=== PATIENT | male | born 1975 | race Caucasian/White ===

== ENCOUNTER → 2016-06-12 | Outpatient (CLI) | payer MEDICARE, OTHER ==
[2016-02-02 12:06] VITALS: BP 109/65
[~2016-06-12] MED LIST: CLIN-44 PO
[2016-06-12 10:25] LABS: ALBUMIN 4.3 g/dL (3.4-5.0); DIRECT BILIRUBIN 0.1 mg/dL (0.0-0.2); TOTAL BILIRUBIN 0.4 mg/dL (0.2-1.0); TOTAL PROTEIN 7.3 g/dL (6.4-8.2)
== END | disposition home or self-care (01) ==
LOC: LAB 09:58
PROVIDERS: ATTEND Internal Medicine Rheumatology
DX: B35.1 Tinea unguium (principal)
CPT/HCPCS: 36415; 80076

== ENCOUNTER 2016-06-21 20:44 | Emergency (ER) | payer MEDICARE, OTHER ==
[~2016-06-21] VITALS: Ht 172.7 cm; Wt 65.8 kg
[2016-06-21 20:50] VITALS: BP 143/65
--- NOTE | 2016-06-21 22:00 | PHYS DOC ---
Past Medical History Past Medical History: Migraines, Seizure Past Surgical History: Other Additional Past Surgical Histo: Hernia repair Alcohol Use: None Drug Use: None Adult General Chief Complaint Chief Complaint: UPPER EXTREMITY INJURY HPI HPI Patient is a 40 year old male who presents with right upper extremity pain after falling on it bowling. Patient denies any loss of consciousness. Review of Systems Review of Systems Constitutional: Denies fever or chills [] Eyes: Denies change in visual acuity, redness, or eye pain [] Musculoskeletal: Right upper extremity pain Integument: Denies rash or skin lesions [] Neurologic: Denies headache, focal weakness or sensory changes [] Endocrine: Denies polyuria or polydipsia [] Allergies Allergies Allergies Coded Allergies Type Severity Reaction Last Updated Verified acetaminophen Allergy Intermediate 08/08/14 Yes Physical Exam Physical Exam Constitutional: Well developed, well nourished, no acute distress, non-toxic appearance. [] HENT: Normocephalic, atraumatic, bilateral external ears normal, oropharynx moist, no oral exudates, nose normal. [] Skin: Warm, dry, no erythema, no rash. [] Back: No tenderness, no CVA tenderness. [] Extremities: Right upper extremity with no obvious deformity. Diffuse tenderness to the right upper extremity from [employer] redness to meet forearm. Adequate range of motion to the right upper extremity. Adequate plantar flexion and dorsiflexion to the right upper extremity. Adequate medial radial and ulnar sensation to the right upper extremity. +2 right radial pulse. Cap refill less than 2 seconds the right upper extremity. Sensation intact to the right upper extremity. Neurologic: Alert and oriented X 3, normal motor function, normal sensory function, no focal deficits noted. [] Psychologic: Affect normal, judgement normal, mood normal. [] Current Patient Data Vital Signs Vital Signs Date Time Temp Pulse Resp B/P Pulse Ox O2 Delivery O2 Flow Rate FiO2 06/21/16 20:50 97.4 69 18 98 Room Air 97.4 EKG EKG [] Radiology/Procedures Radiology/Procedures [] Course & Med Decision Making Course & Med Decision Making Pertinent Labs and Imaging studies reviewed. (See chart for details) Patient is in the ED right upper extremity pain after falling on it, right shoulder and forearm x-rays interpreted by Dr. Delatorre and negative for any acute findings. Patient was provided a sling in the ED applied by the ED RN, neurovascular exam done by me is normal, cap refill less than 2 seconds. Ice elevation encouraged. Follow-up with Ortho next week. Naproxen for pain. Dragon Disclaimer Dragon Disclaimer This electronic medical record was generated, in whole or in part, using a voice recognition dictation system. Departure Departure Impression: Primary Impression: Sprain of right upper arm Additional Impression: Fall from standing Disposition: HOME, SELF-CARE Condition: STABLE Referrals: ISRRAEL DIEGO MD (PCP) JENNA LEGGETT MD Follow-up with the provided orthopedic doctor or your own doctor in a week if pain continues Patient Instructions: Joint Sprain Additional Instructions: You were seen for right upper extremity sprain after falling. Ice and elevate the extremity. Follow-up with the provided orthopedic doctor in one week if pain continues. Problem Qualifiers Primary Impression: Sprain of right upper arm Encounter type: initial encounter Qualified Code: S43.401A - Unspecified sprain of right shoulder joint, initial encounter Additional Impression: Fall from standing Encounter type: initial encounter Qualified Code: W19.XXXA - Unspecified fall, initial encounter LORETTA ANTONIO APRN Jun 21, 2016 22:00
--- NOTE | 2016-06-22 08:10 | RAD ---
Right shoulder, 3 views, 06/21/2016: History: Fall, pain No fracture or dislocation is identified. The soft tissues are unremarkable. IMPRESSION: No significant right shoulder abnormality is detected. Right forearm, 2 views, 06/21/2016: No fracture is identified. The soft tissues are unremarkable. IMPRESSION: No acute abnormality is detected.
== END 2016-06-21 22:11 | disposition home or self-care (01) ==
LOC: ER 20:44
DX: S43.401A Unspecified sprain of right shoulder joint, initial encounter (principal); G43.909 Migraine, unspecified, not intractable, without status migrainosus; Z88.8 Allergy status to other drugs, medicaments and biological substances; W19.XXXA Unspecified fall, initial encounter; Y93.54 Activity, bowling; Y92.89 Other specified places as the place of occurrence of the external cause; Y99.8 Other external cause status
CPT/HCPCS: 73030; 73090; 99284

== ENCOUNTER 2016-07-17 02:46 | Emergency (ER) | payer OTHER ==
[~2016-07-17] VITALS: Ht 172.7 cm; Wt 65.8 kg
[2016-07-17 02:55] VITALS: BP 152/66
--- NOTE | 2016-07-17 03:09 | PHYS DOC ---
Past Medical History Past Medical History: Migraines, Seizure Past Surgical History: Other Additional Past Surgical Histo: Hernia repair Alcohol Use: None Drug Use: None Adult General Chief Complaint Chief Complaint: ANKLE PROBLEM HPI HPI Patient is a 40 year old male who presents with R foot/ankle pain. Patient reports tonight ~2345 he started having pain in his R foot and ankle. No fall or other trauma. He is unsure how he could have hurt his foot. He has taken naproxen with insufficient relief at home. No other acute complaints. Review of Systems Review of Systems Constitutional: Denies fever or chills Respiratory: Denies cough or shortness of breath Cardiovascular: Denies chest pain GI: Denies abdominal pain, nausea, vomiting, or diarrhea Musculoskeletal: R foot/ankle pain Neurologic: Denies headache, focal weakness or sensory changes Current Medications Current Medications Current Medications Medications (Trade) Dose Ordered Sig/Margarito Start Time Stop Time Status Last Admin Dose Admin Tramadol HCl (Ultram) 50 mg 1X ONCE 07/17/16 03:30 07/17/16 03:31 DC 07/17/16 03:22 50 MG Allergies Allergies Allergies Coded Allergies Type Severity Reaction Last Updated Verified acetaminophen Allergy Intermediate 08/08/14 Yes Physical Exam Physical Exam Constitutional: Well developed, well nourished, no acute distress, non-toxic appearance HENT: Normocephalic, atraumatic Eyes: EOMI, conjunctiva normal, no discharge Neck: No stridor Pulmonary: No respiratory distress Skin: Warm, dry Neurologic: Alert and oriented X 3 Musculoskeletal: R foot visually unremarkable, no deformity, bruising, or other lesion noted; 2+ DP pulse; no TTP over medial or lateral malleoli; generally TTP over dorsal aspect of foot; motor function limited by pain; sensation to light touch intact; brisk cap refill Current Patient Data Vital Signs Vital Signs Date Time Temp Pulse Resp B/P Pulse Ox O2 Delivery O2 Flow Rate FiO2 07/17/16 03:22 18 96 Room Air 07/17/16 02:55 97.9 84 152/66 97.9 EKG EKG [] Radiology/Procedures Radiology/Procedures X-ray R foot (my read): No acute abnormality Course & Med Decision Making Course & Med Decision Making Pertinent Labs and Imaging studies reviewed. (See chart for details) Patient is 40 year old male who presents with R foot pain. No significant injury noted on exam, will obtain x-ray to further evaluate. Dose of tramadol ordered for pain control. X-rays without acute abnormality per my read. Discussed results with patient. Will apply valerio wrap for support. Discussed RICE treatment with patient. Will discharge with rx for naproxen, instructions for follow up, return precautions. Dragon Disclaimer Dragon Disclaimer This electronic medical record was generated, in whole or in part, using a voice recognition dictation system. Departure Departure Impression: Primary Impression: Pain in right foot Disposition: HOME, SELF-CARE Condition: STABLE Referrals: ISRRAEL DIEGO MD (PCP) Patient Instructions: Foot Sprain Additional Instructions: Thank you for allowing us to provide care today in the Emergency Department. Take the provided medication as directed. Schedule a follow up appointment with your primary care doctor. Return promptly to the Emergency Department if you develop any new or concerning symptoms. Scripts Naproxen 375 Mg [id number] Mg PO BID PRN PAIN #20 Prov:JSOE ORTIZ MD 07/17/16 JOSE ORTIZ MD Jul 17, 2016 03:09
[2016-07-17] MEDS ORDERED: NAPR375T3 PO (03:27)
[2016-07-17] MEDS ORDERED: TRAMADOL 50 MG TABLET. PO ONE (03:30)
--- NOTE | 2016-07-17 07:27 | RAD ---
Indication pain. AP oblique and lateral views of the right foot were obtained. No bony abnormality is seen
== END 2016-07-17 03:30 | disposition home or self-care (01) ==
LOC: ER 02:46
DX: M25.571 Pain in right ankle and joints of right foot (principal); G43.909 Migraine, unspecified, not intractable, without status migrainosus; Z88.6 Allergy status to analgesic agent
CPT/HCPCS: 73630; 99284

== ENCOUNTER 2016-08-13 10:17 | Emergency (ER) | payer OTHER ==
[~2016-08-13] VITALS: Ht 175.3 cm; Wt 65.8 kg
[~2016-08-13 10:17] MED LIST changes: +NAPR375T3 PO
[2016-08-13 10:29] VITALS: BP 113/68
--- NOTE | 2016-08-13 11:11 | PHYS DOC ---
Past Medical History Past Medical History: Migraines, Seizure Past Surgical History: Other Additional Past Surgical Histo: Hernia repair Alcohol Use: None Drug Use: None Adult General Chief Complaint Chief Complaint: WRIST PAIN [facility] HPI Patient is a 40 year old female presents emergency department stating that he was roller skating on Thursday when he fell and injured his left wrist. He states that he is having pain on the ulnar side. Patient states that he is left-hand- dominant. He denies any numbness or tingling into the fingers. He has full range of motion of the wrist. He also states that he's been having right wrist pain as well. He states that this was not related to the fall. He has having increased pain with full range of motion. Patient continues to state that he had taken his child to the doctor yesterday and they looked at his wrist and told him that if he had further pain and discomfort he should follow-up in the emergency department. Review of Systems Review of Systems Constitutional: Denies fever or chills [] Eyes: Denies change in visual acuity, redness, or eye pain [] HENT: Denies nasal congestion or sore throat [] Respiratory: Denies cough or shortness of breath [] Cardiovascular: No additional information not addressed in HPI [] GI: Denies abdominal pain, nausea, vomiting, bloody stools or diarrhea [] : Denies dysuria or hematuria [] Musculoskeletal: Denies back pain. Bilateral wrist pain Integument: Denies rash or skin lesions [] Neurologic: Denies headache, focal weakness or sensory changes [] Allergies Allergies Allergies Coded Allergies Type Severity Reaction Last Updated Verified acetaminophen Allergy Intermediate 08/08/14 Yes Physical Exam Physical Exam Constitutional: Well developed, well nourished, no acute distress, non-toxic appearance. [] HENT: Normocephalic, atraumatic, bilateral external ears normal, oropharynx moist, no oral exudates, nose normal. [] Eyes: PERRLA, EOMI, conjunctiva normal, no discharge. [] Neck: Normal range of motion, no tenderness, supple, no stridor. [] Cardiovascular:Heart rate regular rhythm, no murmur [] Lungs & Thorax: Bilateral breath sounds clear to auscultation [] Skin: Warm, dry, no erythema, no rash. [] Back: No tenderness Extremities: Bilateral wrist tenderness, no cyanosis, no clubbing, ROM intact, no edema. No swelling no discoloration or bruising noted in the wrist. Patient has full range of motion of bilateral wrist, pulse 2+ cap refill brisk less than 2 seconds. Neurologic: Alert and oriented X 3, normal motor function, normal sensory function, no focal deficits noted. [] Psychologic: Affect normal, judgement normal, mood normal. [] Current Patient Data Vital Signs Vital Signs Date Time Temp Pulse Resp B/P Pulse Ox O2 Delivery O2 Flow Rate FiO2 08/13/16 10:29 97.9 84 20 97 Room Air 97.9 EKG EKG [] Radiology/Procedures Radiology/Procedures [facility] [address] [place] [address] IMAGING REPORT Signed PATIENT: KRISTOFER DAWSON ACCOUNT: [id number] : 1975 LOCATION: ER AGE: 40 SEX: M EXAM STATUS: REG ER ORD. PHYSICIAN: DYAN SPRAGUE APRN REASON: fall with pain to left wrist, right wrist pain was hurting prior to fall. PROCEDURE: WRIST BILAT 3V Indication fall, pain both wrists. AP oblique and lateral views of both wrists were obtained. Views of the left wrist appear normal. Views of the right wrist also appear unremarkable. IMPRESSION: Normal plain films of both wrists DICTATED and SIGNED BY: LEONEL LYLES MD DATE: 08/13/16 1126 CC: DYAN SPRAGUE APRN; ISRRAEL DIEGO MD; NON,STAFF ~ [] Course & Med Decision Making Course & Med Decision Making Pertinent Labs and Imaging studies reviewed. (See chart for details) X-rays were negative for any bony abnormalities per radiology. Patient will be recommended to use ice packs on 20 minutes off 20 minutes several times a day. Patient was also encouraged to use ibuprofen for pain. Recommended Lusi wrap's to help with compression and elevation as much as possible. Patient will be referred to orthopedic if he continues to have pain and discomfort. Signs symptoms to return back to emergency department been provided. Patient agrees with discharge instructions treatment regimens and follow-up recommendations. [] Dragon Disclaimer Dragon Disclaimer This electronic medical record was generated, in whole or in part, using a voice recognition dictation system. Departure Departure Impression: Primary Impression: Strain of wrist, bilateral Disposition: HOME, SELF-CARE Condition: STABLE Referrals: ISRRAEL DIEGO MD (PCP) SUJATA GROSS II, MD Patient Instructions: Wrist Pain, [id number] Additional Instructions: Activity as tolerated. Ibuprofen for pain and discomfort. He may take 600-800 mg every 8 hours with food. Stop taking few develop upset stomach. You may apply Luis wrap's to bilateral wrists to help with discomfort. Elevation as much as possible. Ice packs on 20 minutes off 20 minutes several times a day. Follow-up with orthopedic if he continued to have pain and discomfort. Return back to the emergency department for signs and symptoms of become worse. DYAN SPRAGUE APRN Aug 13, 2016 11:11
--- NOTE | 2016-08-13 11:32 | RAD ---
Indication fall, pain both wrists. AP oblique and lateral views of both wrists were obtained. Views of the left wrist appear normal. Views of the right wrist also appear unremarkable. IMPRESSION: Normal plain films of both wrists
== END 2016-08-13 12:16 | disposition home or self-care (01) ==
LOC: ER 10:17
DX: S66.912A Strain of unspecified muscle, fascia and tendon at wrist and hand level, left hand, initial encounter (principal); S66.911A Strain of unspecified muscle, fascia and tendon at wrist and hand level, right hand, initial encounter; G43.909 Migraine, unspecified, not intractable, without status migrainosus; Z88.6 Allergy status to analgesic agent; V00.121A Fall from non-in-line roller-skates, initial encounter; Y93.51 Activity, roller skating (inline) and skateboarding; Y92.89 Other specified places as the place of occurrence of the external cause; Y99.8 Other external cause status
CPT/HCPCS: 73110; 99284

== ENCOUNTER 2016-10-29 11:07 | Emergency (ER) | payer OTHER ==
[~2016-10-29] VITALS: Ht 172.7 cm; Wt 65.8 kg
[~2016-10-29 11:07] MED LIST changes: -CLIN-44 PO; +CLIN150C14 PO
[2016-10-29] MEDS ORDERED: KETOROLAC TROMETHAMINE 30 MG/ML INJ. IV ONE (12:15)
--- NOTE | 2016-10-29 13:07 | RAD ---
CT of the abdomen and pelvis without contrast, 10/29/2016: History: Right groin pain Noncontrast CT scans were obtained utilizing the renal stone protocol. No intrarenal calculi are evident on the right. The right renal pelvis and right ureter are mildly dilated. There is mild periureteral edema. A 6 mm calculus is present in the distal right ureter near the ureterovesical junction. There are 2 small intrarenal calculi on the left. The largest of which lies in the lower pole and measures 3 mm. The left renal collecting system and left ureter are not dilated. No left ureteral calculus is seen. The partially filled urinary bladder is unremarkable. The unopacified liver is unremarkable. There is a tiny focus of increased density along the posterior wall the gallbladder raising the possibility of a tiny calculus. No pericholecystic edema is evident. The pancreas is unremarkable. The spleen is of normal size. No abdominal or pelvic adenopathy is seen. The bowel loops are not dilated. No free fluid or free air is evident in the abdomen or pelvis. Incidental note is made of bilateral spondylolysis at L5. IMPRESSION: 1. Small obstructing calculus in the distal right ureter near the ureterovesical junction. 2. Tiny nonobstructing left intrarenal calculi. 3. Possible cholelithiasis. 4. Bilateral spondylolysis at L5. PQRS Compliance Statement: One or more of the following individualized dose reduction techniques were utilized for this examination: 1. Automated exposure control 2. Adjustment of the mA and/or kV according to patient size 3. Use of iterative reconstruction technique
[2016-10-29 13:16] LABS: BASO # 0.1 x10^3/uL (0.0-0.2); BASO % 1 % (0-3); EOS % 0 % (0-3); HEMATOCRIT 42.6 % (39.0-53.0); HEMOGLOBIN 14.2 g/dL (13.0-17.5); LYMPH # 0.9 x10^3/uL (1.0-4.8); LYMPH % 6 % (24-48); MEAN CORPUSCULAR HEMOGLOBIN 30 pg (25-35); MEAN CORPUSCULAR HGB CONC 33 g/dL (31-37); MEAN CORPUSCULAR VOLUME 91 fL (79-100); MONO % 5 % (0-9); NEUT % 88 % (31-73); PLATELET COUNT 216 x10^3/uL (140-400); RED CELL DISTRIBUTION WIDTH 13.6 % (11.5-14.5)
[2016-10-29 13:22] LABS: CALCIUM 9.1 mg/dL (8.5-10.1); CREATININE 1.4 mg/dL (0.7-1.3); GFR 56.1; POTASSIUM 3.4 mmol/L (3.5-5.1)
[2016-10-29 13:36] LABS: ALBUMIN 4.3 g/dL (3.4-5.0); ALBUMIN/GLOBULIN RATIO 1.4 (1.0-1.7); TOTAL BILIRUBIN 0.6 mg/dL (0.2-1.0); TOTAL PROTEIN 7.4 g/dL (6.4-8.2)
[2016-10-29 13:47] LABS: BILIRUBIN,URINE SMALL (NEG); GLUCOSE,URINE NEGATIVE (NEG); NITRITE,URINE NEGATIVE (NEG); PROTEIN,URINE NEGATIVE (NEG-TRACE)
[2016-10-29 13:57] LABS: BACTERIA,URINE 0 /HPF (0-FEW); RBC,URINE 20-40 /HPF (0-2)
[2016-10-29 14:58] LABS: PLT ESTIMATE ADEQUATE (ADEQUATE)
[2016-10-29 15:22] VITALS: BP 102/65
[2016-10-29] MEDS ORDERED: TAMS0.4C97 PO (15:42)
--- NOTE | 2016-10-29 15:42 | PHYS DOC ---
Past Medical History Past Medical History: Migraines, Seizure, Other Additional Past Medical Histor: HERNIA Past Surgical History: Other Additional Past Surgical Histo: Hernia repair Alcohol Use: None Drug Use: None Adult General Chief Complaint Chief Complaint: GROIN PAIN [facility] HPI 40-year-old male with a history of a right inguinal hernia repair as a child now presents the emergency department complaining of pain in the right inguinal area. Patient states she does have some mild discomfort with urination but no testicular or scrotal pain. No CVA tenderness. Patient denies fevers chills sweats or shaking chills. Pain is not worse with movement. Denies history of kidney stone. No mid or upper abdominal pain Review of Systems Review of Systems Constitutional: Denies fever or chills [] Eyes: Denies change in visual acuity, redness, or eye pain [] HENT: Denies nasal congestion or sore throat [] Respiratory: Denies cough or shortness of breath [] Cardiovascular: No additional information not addressed in HPI [] GI: Denies abdominal pain, nausea, vomiting, bloody stools or diarrhea [] : Denies dysuria or hematuria [] Musculoskeletal: Denies back pain or joint pain [] Integument: Denies rash or skin lesions [] Neurologic: Denies headache, focal weakness or sensory changes [] Endocrine: Denies polyuria or polydipsia [] Current Medications Current Medications Current Medications Medications (Trade) Dose Ordered Sig/[facility] Start Time Stop Time Status Last Admin Dose Admin Ketorolac Tromethamine (Toradol) 30 mg 1X ONCE 10/29/16 12:15 10/29/16 12:16 DC 10/29/16 13:00 30 MG Allergies Allergies Allergies Coded Allergies Type Severity Reaction Last Updated Verified acetaminophen Allergy Intermediate 08/08/14 Yes Physical Exam Physical Exam Well-appearing male no acute distress nontender abdomen and pelvis no CVA tenderness. No clinical fever. Normal external genitalia. Nontender scrotum and contents. Constitutional: Well developed, well nourished, no acute distress, non-toxic appearance. [] HENT: Normocephalic, atraumatic, bilateral external ears normal, oropharynx moist, no oral exudates, nose normal. [] Eyes: PERRLA, EOMI, conjunctiva normal, no discharge. [] Neck: Normal range of motion, no tenderness, supple, no stridor. [] Cardiovascular:Heart rate regular rhythm, no murmur [] Lungs & Thorax: Bilateral breath sounds clear to auscultation [] Abdomen: Bowel sounds normal, soft, no tenderness, no masses, no pulsatile masses. [] Skin: Warm, dry, no erythema, no rash. [] Back: No tenderness, no CVA tenderness. [] Extremities: No tenderness, no cyanosis, no clubbing, ROM intact, no edema. [] Neurologic: Alert and oriented X 3, normal motor function, normal sensory function, no focal deficits noted. [] Psychologic: Affect normal, judgement normal, mood normal. [] Current Patient Data Vital Signs Vital Signs Date Time Temp Pulse Resp B/P (MAP) Pulse Ox O2 Delivery O2 Flow Rate FiO2 10/29/16 14:52 76 131/82 (98) 99 Room Air 10/29/16 13:52 22 10/29/16 11:15 97.9 97.9 Lab Values Laboratory Tests Test 10/29/16 13:08 10/29/16 13:34 White Blood Count 14.0 x10^3/uL (4.0-11.0) H Red Blood Count 4.70 x10^6/uL (4.30-5.70) Hemoglobin 14.2 g/dL (13.0-17.5) Hematocrit 42.6 % (39.0-53.0) Mean Corpuscular Volume 91 fL (79-100) Mean Corpuscular Hemoglobin 30 pg (25-35) Mean Corpuscular Hemoglobin Concent 33 g/dL (31-37) Red Cell Distribution Width 13.6 % (11.5-14.5) Platelet Count 216 x10^3/uL (140-400) Neutrophils (%) (Auto) 88 % (31-73) H Lymphocytes (%) (Auto) 6 % (24-48) L Monocytes (%) (Auto) 5 % (0-9) Eosinophils (%) (Auto) 0 % (0-3) Basophils (%) (Auto) 1 % (0-3) Neutrophils # (Auto) 12.3 x10^3uL (1.8-7.7) H Lymphocytes # (Auto) 0.9 x10^3/uL (1.0-4.8) L Monocytes # (Auto) 0.7 x10^3/uL (0.0-1.1) Eosinophils # (Auto) 0.0 x10^3/uL (0.0-0.7) Basophils # (Auto) 0.1 x10^3/uL (0.0-0.2) Segmented Neutrophils % 78 % (35-66) H Band Neutrophils % 4 % (0-9) Lymphocytes % 8 % (24-48) L Monocytes % 10 % (0-10) Platelet Estimate Adequate (ADEQUATE) Sodium Level 140 mmol/L (136-145) Potassium Level 3.4 mmol/L (3.5-5.1) L Chloride Level 107 mmol/L (98-107) Carbon Dioxide Level 24 mmol/L (21-32) Anion Gap 9 (6-14) Blood Urea Nitrogen 16 mg/dL (8-26) Creatinine 1.4 mg/dL (0.7-1.3) H Estimated GFR (Cockcroft-Gault) 56.1 BUN/Creatinine Ratio 11 (6-20) Glucose Level 133 mg/dL (70-99) H Calcium Level 9.1 mg/dL (8.5-10.1) Total Bilirubin 0.6 mg/dL (0.2-1.0) Aspartate Amino Transferase (AST) 21 U/L (15-37) Alanine Aminotransferase (ALT) 22 U/L (16-63) Alkaline Phosphatase 69 U/L (46-116) Total Protein 7.4 g/dL (6.4-8.2) Albumin 4.3 g/dL (3.4-5.0) Albumin/Globulin Ratio 1.4 (1.0-1.7) Lipase 96 U/L (73-393) Urine Collection Type Unknown Urine Color Maryam Urine Clarity Clear Urine pH 6.0 Urine Specific [place] 1.025 Urine Protein Negative mg/dL (NEG-TRACE) Urine Glucose (UA) Negative mg/dL (NEG) Urine Ketones (Stick) Negative mg/dL (NEG) Urine Blood Moderate (NEG) Urine Nitrite Negative (NEG) Urine Bilirubin Small (NEG) Urine Urobilinogen Dipstick 1.0 mg/dL (0.2 mg/dL) Urine Leukocyte Esterase Small (NEG) Urine RBC 20-40 /HPF (0-2) Urine WBC 5-10 /HPF (0-4) Urine Bacteria 0 /HPF (0-FEW) Urine Mucus Marked /LPF Laboratory Tests 10/29/16 13:08 Laboratory Tests 10/29/16 13:08 EKG EKG [] Radiology/Procedures Radiology/Procedures [] Course & Med Decision Making Course & Med Decision Making Pertinent Labs and Imaging studies reviewed. (See chart for details) Signs and symptoms consistent with possible right inguinal hernia versus ureteral colic. Patient stable and well-appearing. UA with microscopic hematuria and not consistent with infection. CT shows 6 mm stone at the right UVJ. Patient comfortable and well-appearing. Pain control vital signs unremarkable. We'll prescribe Flomax NSAIDs and narcotic analgesia and he will follow-up as an outpatient with PCP and urology as needed. [] Dragon Disclaimer Dragon Disclaimer This electronic medical record was generated, in whole or in part, using a voice recognition dictation system. Departure Departure Impression: Primary Impression: Ureterolithiasis Additional Impression: Ureteral colic Disposition: HOME, SELF-CARE Condition: STABLE Referrals: ISRRAEL DIEGO MD (PCP) Patient Instructions: Ureteral Colic Additional Instructions: U have a 6 mm kidney stone in your right ureter. When the CAT scan was done and this was almost in your bladder. Take ibuprofen 800 mg every 6 hours and use [place] as needed for pain. Take Flomax once a day until you pass the stone. Drink plenty of fluids and follow-up with your doctor for reevaluation and referral to urology as needed. Be aware that given the size of ureter stone at 6 mm it is possible that it may not pass spontaneously and could require intervention from urology. Follow-up with her doctor to discuss this. You been given a copy of the CAT scan. Be aware of incidental finding today of suspected gallstones in your gallbladder as well as chronic spinal problems. Scripts Tamsulosin Hcl (FLOMAX) 0.4 Mg Cap.er.24h 0.4 MG PO DAILY for 7 Days, #7 TAB Prov: MATT HOUSE MD 10/29/16 Problem Qualifiers MATT HOUSE MD Oct 29, 2016 15:42
[2016-10-29] MEDS ORDERED: HYDR-971 PO (15:46)
== END 2016-10-29 15:54 | disposition home or self-care (01) ==
LOC: ER 11:07
DX: N20.1 Calculus of ureter (principal); G43.909 Migraine, unspecified, not intractable, without status migrainosus; Z88.8 Allergy status to other drugs, medicaments and biological substances
CPT/HCPCS: 36415; 74176; 80053; 81001; 83690; 85007; 85027; 96374; 99285; J1885

== ENCOUNTER → 2016-12-15 | Outpatient (CLI) | payer OTHER ==
[~2016-12-15] MED LIST changes: +HYDR-971 PO; +TAMS0.4C97 PO
--- NOTE | 2016-12-15 13:53 | KCIC ---
Right upper quadrant abdominal ultrasound History: Calculus of gallbladder without cholecystitis. Comparison: None. Technique: Transabdominal ultrasound images are obtained. Findings: Visualized pancreas is unremarkable. Liver is normal in echogenicity. No focal hepatic masses are identified. Portal flow is hepatopedal. Right hepatic lobe measures 13 cm, normal. There is no cholelithiasis, pericholecystic fluid, or gallbladder wall thickening. Sonographic Haywood sign is negative. Common bile duct caliber is normal measuring 4 mm in diameter. The right kidney measures 11.2 cm in length and is without evidence of obstruction or stone. Visualized portions of the aorta and IVC have normal caliber. IMPRESSION: Unremarkable right upper quadrant ultrasound. Electronically signed by: Foreign Ruiz MD (12/15/2016 1:49 PM) [id number]
== END | disposition home or self-care (01) ==
LOC: KCIC US 12:00
PROVIDERS: ATTEND Physician Assistant Medical
DX: K80.20 Calculus of gallbladder without cholecystitis without obstruction (principal)
CPT/HCPCS: 76705

== ENCOUNTER 2017-01-04 12:53 | Emergency (ER) | payer OTHER ==
[~2017-01-04] VITALS: Ht 175.3 cm; Wt 65.8 kg
[~2017-01-04 12:53] MED LIST changes: +NAPR-695 PO; -NAPR375T3 PO
[2017-01-04 13:22] VITALS: BP 138/72
[2017-01-04] MEDS ORDERED: MORPHINE IR 15 MG TABLET PO ONE (13:45)
[2017-01-04 13:51] LABS: BILIRUBIN,URINE SMALL (NEG); GLUCOSE,URINE NEGATIVE (NEG); NITRITE,URINE NEGATIVE (NEG); PROTEIN,URINE NEGATIVE (NEG-TRACE); UROBILINOGEN,URINE 0.2 mg/dL (0.2 mg/dL)
[2017-01-04 14:00] LABS: BACTERIA,URINE 0 /HPF (0-FEW); RBC,URINE 0 /HPF (0-2); SQUAMOUS EPITHELIAL CELL,UR FEW /LPF; WBC,URINE OCC /HPF (0-4)
[2017-01-04] MEDS ORDERED: MORP15TA PO (14:17)
--- NOTE | 2017-01-04 14:17 | PHYS DOC ---
Past Medical History Past Medical History: Kidney Stone, Migraines, Seizure, Other Additional Past Medical Histor: HERNIA Past Surgical History: Other Additional Past Surgical Histo: Hernia repair; kidney stone 12/19/16 Alcohol Use: None Drug Use: None Adult General Chief Complaint Chief Complaint: POST-OP PROBLEM HPI HPI 41-year-old male presenting to the emergency department today with left groin pain. His pain started after being discharged from having his surgery. He recently had a urologic procedure done at [facility] where he had a stent placement in his left ureter. This was performed on December 19. His pain is sharp intermittent nonradiating and without alleviating factors. He denies current swelling but does have a history of hernia repair but he does not remember which side it was on. He denies testicular pain or swelling. He denies any redness. He denies hematuria polyuria or dysuria. The pain as a sharp shooting pain. Review of systems is negative for chest pain shortness of breath fevers or chills. All other review of systems is negative unless otherwise noted in history of present illness. ED course 41-year-old male presenting to the emergency department today with left groin pain after having a procedure performed. Vital signs unremarkable. Physical exam findings showed a normal inguinal exam and a normal testicular exam. Otherwise unremarkable. Urinalysis negative for infection. Differential diagnosis included nephrolithiasis, postoperative pain, subtle inguinal hernia. The patient clearly did not demonstrate any evidence of an incarcerated or a strangulated hernia. The patient was then discharged home in stable condition to follow up with their primary care physician over the next 2-3 days. They were to return if their symptoms worsened or if they were concerned for any reason. [id number] discharge instructions and return precautions were given. Patient's questions were answered to their satisfaction. Patient is comfortable plan. Review of Systems Review of Systems SEE ABOVE. Current Medications Current Medications Current Medications Medications (Trade) Dose Ordered Sig/[facility] Start Time Stop Time Status Last Admin Dose Admin Morphine Sulfate (Morphine Ir) 15 mg 1X ONCE 01/04/17 13:45 01/04/17 13:47 DC 01/04/17 13:51 15 MG Allergies Allergies Allergies Coded Allergies Type Severity Reaction Last Updated Verified acetaminophen Allergy Intermediate 08/08/14 Yes Physical Exam Physical Exam SEE ABOVE Constitutional: Well developed, well nourished, no acute distress, non-toxic appearance. [] HENT: Normocephalic, atraumatic, bilateral external ears normal, oropharynx moist, no oral exudates, nose normal. [] Eyes: PERRLA, EOMI, conjunctiva normal, no discharge. [] Neck: Normal range of motion, no tenderness, supple, no stridor. [] Cardiovascular:Heart rate regular rhythm, no murmur [] Lungs & Thorax: Bilateral breath sounds clear to auscultation [] Abdomen: Bowel sounds normal, soft, no tenderness, no masses, no pulsatile masses. [] exam: Testicles are normal in size without any erythema. Normal orientation. Normal lie. Nontender to palpation. Left inguinal area is nontender to palpation with no palpable hernia present. Skin: Warm, dry, no erythema, no rash. [] Back: No tenderness, no CVA tenderness. [] Extremities: No tenderness, no cyanosis, no clubbing, ROM intact, no edema. [] Neurologic: Alert and oriented X 3, normal motor function, normal sensory function, no focal deficits noted. [] Psychologic: Affect normal, judgement normal, mood normal. [] Current Patient Data Vital Signs Vital Signs Date Time Temp Pulse Resp B/P (MAP) Pulse Ox O2 Delivery O2 Flow Rate FiO2 01/04/17 13:51 22 98 Room Air 01/04/17 13:22 97.7 54 138/72 (94) 97.7 138/72 (94) Lab Values Laboratory Tests Test 01/04/17 13:02 Urine Collection Type Unknown Urine Color Yellow Urine Clarity Cloudy Urine pH 5.0 Urine Specific [place] 1.025 Urine Protein Negative mg/dL (NEG-TRACE) Urine Glucose (UA) Negative mg/dL (NEG) Urine Ketones (Stick) Negative mg/dL (NEG) Urine Blood Negative (NEG) Urine Nitrite Negative (NEG) Urine Bilirubin Small (NEG) Urine Urobilinogen Dipstick 0.2 mg/dL (0.2 mg/dL) Urine Leukocyte Esterase Trace (NEG) Urine RBC 0 /HPF (0-2) Urine WBC Occ /HPF (0-4) Urine Squamous Epithelial Cells Few /LPF Urine Bacteria 0 /HPF (0-FEW) EKG EKG [] Radiology/Procedures Radiology/Procedures [] Course & Med Decision Making Course & Med Decision Making Pertinent Labs and Imaging studies reviewed. (See chart for details) [] Dragon Disclaimer Dragon Disclaimer This electronic medical record was generated, in whole or in part, using a voice recognition dictation system. Departure Departure Impression: Primary Impression: Left groin pain Disposition: HOME, SELF-CARE Condition: STABLE Referrals: ISRRAEL DIEGO MD (PCP) Patient Instructions: Groin Strain Additional Instructions: Thank you for allowing us to participate in your care today. I recommend you follow-up with your urologist in 7 days. Also followup with your primary care physician in 3 days if your symptoms do not improve. Call your Primary Doctor tomorrow and inform them of your visit today. If you do not have a primary care provider you can ask for a list of our primary care providers. Return to the emergency department you have any new or concerning findings. This should be evaluated by the primary care physician and any necessary consulting services for continued management within a few days after discharge. Return to emergency room if you have any new or concerning symptoms including but not limited to fever, chills, nausea, vomiting, intractable pain, any new rashes, chest pain, shortness of air, uncontrolled bleeding, difficulty breathing, and/or vision loss. Scripts Morphine Sulfate (MORPHINE SULFATE) 15 Mg Tablet 1 TAB PO PRN Q6-8HRS Y for SEVERE PAIN, #8 TAB Prov: ANALY RODRIGUEZ MD 01/04/17 ANALY RODRIGUEZ MD Jan 04, 2017 14:17
== END 2017-01-04 14:35 | disposition home or self-care (01) ==
LOC: ER 12:53
DX: R10.30 Lower abdominal pain, unspecified (principal); G43.909 Migraine, unspecified, not intractable, without status migrainosus; Z87.442 Personal history of urinary calculi; Z88.6 Allergy status to analgesic agent
CPT/HCPCS: 81001; 87086; 99284

== ENCOUNTER 2017-01-27 22:11 | Emergency (ER) | payer OTHER ==
[~2017-01-27] VITALS: Ht 175.3 cm; Wt 65.8 kg
[~2017-01-27 22:11] MED LIST changes: +MORP15TA PO
[2017-01-27 22:20] VITALS: BP 149/76
[2017-01-27] MEDS ORDERED: DOXY100C2 PO (22:28)
--- NOTE | 2017-01-27 22:29 | PHYS DOC ---
Past Medical History Past Medical History: Kidney Stone, Migraines, Seizure, Other Additional Past Medical Histor: HERNIA Past Surgical History: Other Additional Past Surgical Histo: Hernia repair; kidney stone 12/19/16 Alcohol Use: None Drug Use: None Adult General Chief Complaint Chief Complaint: COUGH [facility] HPI Patient is a 41 year old male presents to the emergency department stating that he's had a cough congestion with green colored drainage from his nares for the last 5-6 months. Patient states he has been taken ibuprofen and Aleve for the congestion. Patient was also noted to have been seen here on 01/01 with no complaints of the above noted. Patient denies any fever, chills or any nausea vomiting. He states that he's been taking cough medications from his fiance her girlfriend. He states that she no longer has anymore as he has taken them all. He denies any shortness of air difficulty breathing. Vital signs are stable Review of Systems Review of Systems Constitutional: Denies fever or chills [] Eyes: Denies change in visual acuity, redness, or eye pain [] HENT: Nasal congestion denies sore throat Respiratory: Cough denies shortness of air Cardiovascular: No additional information not addressed in HPI [] GI: Denies abdominal pain, nausea, vomiting, bloody stools or diarrhea [] : Denies dysuria or hematuria [] Musculoskeletal: Denies back pain or joint pain [] Integument: Denies rash or skin lesions [] Neurologic: Denies headache, focal weakness or sensory changes [] Endocrine: Denies polyuria or polydipsia [] Allergies Allergies Allergies Coded Allergies Type Severity Reaction Last Updated Verified acetaminophen Allergy Intermediate 08/08/14 Yes Physical Exam Physical Exam Constitutional: Well developed, well nourished, no acute distress, non-toxic appearance. [] HENT: Normocephalic, atraumatic, bilateral external ears normal, oropharynx moist, no oral exudates, nose normal. Bilateral tympanic membranes appear to be normal. Patient with frontal and maxillary sinus tenderness noted throat appears to have postnasal drip with no exudate or no erythematous noted. Eyes: PERRLA, EOMI, conjunctiva normal, no discharge. [] Neck: Normal range of motion, no tenderness, supple, no stridor. [] Cardiovascular:Heart rate regular rhythm, no murmur [] Lungs & Thorax: Bilateral breath sounds clear to auscultation [] Abdomen: Bowel sounds normal, soft, no tenderness, no masses, no pulsatile masses. [] Skin: Warm, dry, no erythema, no rash. [] Extremities: No tenderness, no cyanosis, no clubbing, ROM intact, no edema. [] Neurologic: Alert and oriented X 3, normal motor function, normal sensory function, no focal deficits noted. [] Psychologic: Affect normal, judgement normal, mood normal. [] EKG EKG [] Radiology/Procedures Radiology/Procedures [] Course & Med Decision Making Course & Med Decision Making Pertinent Labs and Imaging studies reviewed. (See chart for details) Patient will be discharged home in stable condition he'll be provided a prescription for doxycycline with recommendations for Sudafed and Mucinex DM instructed by leveling machine operator [id number]. Recommended plenty of fluids. Patient will be discharged home in stable condition with signs and symptoms to return back to the emergency department. All questions and concerns been answered at patient's bedside. Patient agrees with discharge instructions treatment regimens and follow-up recommendations. [] Dragon Disclaimer Dragon Disclaimer This electronic medical record was generated, in whole or in part, using a voice recognition dictation system. Departure Departure Impression: Primary Impression: Sinusitis Disposition: 01 HOME, SELF-CARE Condition: STABLE Referrals: ISRRAEL DIEGO MD (PCP) Patient Instructions: Sinusitis, [id number] Additional Instructions: Activity as tolerated Medication as prescribed Sudafed and Mucinex DM as directed by manufacture over the counter Drink plenty of fluids Followup with primary care provider in 3-5 days Return to emergency department as needed for signs and symptoms that become worse. Scripts Doxycycline Hyclate (DOXYCYCLINE HYCLATE) 100 Mg Capsule 1 CAP PO BID, #20 CAP Prov: DYAN SPRAGUE APRN 01/27/17 DYAN SPRAGUE APRN Jan 27, 2017 22:28
== END 2017-01-27 22:33 | disposition home or self-care (01) ==
LOC: ER 22:11
DX: J32.9 Chronic sinusitis, unspecified (principal); G43.909 Migraine, unspecified, not intractable, without status migrainosus; Z88.6 Allergy status to analgesic agent
CPT/HCPCS: 99283

== ENCOUNTER 2017-12-18 14:08 | Emergency (ER) | payer OTHER ==
[~2017-12-18] VITALS: Ht 175.3 cm; Wt 77.6 kg
[~2017-12-18 14:08] MED LIST changes: +DOXY100C2 PO
[2017-12-18 14:25] VITALS: BP 149/76
--- NOTE | 2017-12-18 15:21 | PHYS DOC ---
Past Medical History Past Medical History: Kidney Stone, Migraines, Seizure, Other Additional Past Medical Histor: HERNIA Past Surgical History: Other Additional Past Surgical Histo: Hernia repair; kidney stone 12/19/16 Alcohol Use: None Drug Use: None Adult General Chief Complaint Chief Complaint: SORE THROAT [facility] HPI Patient is a 42 year old male who presents complaining of sore throat for one week. Denies any fever coughing or congestion. Review of Systems Review of Systems Constitutional: Denies fever or chills [] Eyes: Denies change in visual acuity, redness, or eye pain [] HENT: Reports sore throat. Denies nasal congestion Respiratory: Denies cough or shortness of breath [] Cardiovascular: No additional information not addressed in HPI [] GI: Denies abdominal pain, nausea, vomiting, bloody stools or diarrhea [] : Denies dysuria or hematuria [] Musculoskeletal: Denies back pain or joint pain [] Integument: Denies rash or skin lesions [] Neurologic: Denies headache, focal weakness or sensory changes [] All other systems were reviewed and found to be within normal limits, except as documented in this note. Allergies Allergies Allergies Coded Allergies Type Severity Reaction Last Updated Verified acetaminophen Allergy Intermediate 08/08/14 Yes Physical Exam Physical Exam Constitutional: Well developed, well nourished, no acute distress, non-toxic appearance. [] HENT: Normocephalic, atraumatic, bilateral external ears normal, oropharynx moist, no oral exudates, nose normal. [] Eyes: PERRLA, EOMI, conjunctiva normal, no discharge. [] Neck: Normal range of motion, no tenderness, supple, no stridor. [] Cardiovascular:Heart rate regular rhythm, no murmur [] Lungs & Thorax: Bilateral breath sounds clear to auscultation [] Abdomen: Bowel sounds normal, soft, no tenderness, no masses, no pulsatile masses. [] Skin: Warm, dry, no erythema, no rash. [] Back: No tenderness, no CVA tenderness. [] Extremities: No tenderness, no cyanosis, no clubbing, ROM intact, no edema. [] Neurologic: Alert and oriented X 3, normal motor function, normal sensory function, no focal deficits noted. [] Psychologic: Affect normal, judgement normal, mood normal. [] Current Patient Data Vital Signs Vital Signs Date Time Temp Pulse Resp B/P (MAP) Pulse Ox O2 Delivery O2 Flow Rate FiO2 12/18/17 14:25 89 17 149/76 (100) 97 EKG EKG [] Radiology/Procedures Radiology/Procedures [] Course & Med Decision Making Course & Med Decision Making Pertinent Labs and Imaging studies reviewed. (See chart for details) This is a 42-year-old male patient presenting with sore throat for one week, negative rapid strep. Symptoms likely viral. Tylenol or Motrin recommended for pain/fever. Saltwater gargles recommended. Follow-up with primary care doctor in 1-2 weeks as needed. Dragon Disclaimer Dragon Disclaimer This electronic medical record was generated, in whole or in part, using a voice recognition dictation system. Departure Departure Impression: Primary Impression: Acute viral pharyngitis Disposition: HOME, SELF-CARE Condition: STABLE Referrals: ISRRAEL DIEGO MD (PCP) Follow-up in 1-2 weeks as needed Patient Instructions: Viral Pharyngitis Additional Instructions: You were evaluated in the emergency room for sore throat. Your rapid strep test is negative, use saltwater gargles as needed. Take Motrin for pain or fever. Follow-up with your own doctor in 1-2 weeks as needed. Scripts Prednisone (PREDNISONE) 50 Mg Tablet 1 TAB PO DAILY, #5 TAB Prov: LORETTA ANTONIO APRN 12/18/17 LORETTA ANTONIO APRN Dec 18, 2017 15:21
[2017-12-18] MEDS ORDERED: PRED50TA PO (15:28)
== END 2017-12-18 15:33 | disposition home or self-care (01) ==
LOC: ER 14:08
DX: J02.8 Acute pharyngitis due to other specified organisms (principal); B97.89 Other viral agents as the cause of diseases classified elsewhere; G43.909 Migraine, unspecified, not intractable, without status migrainosus; Z87.442 Personal history of urinary calculi; Z88.6 Allergy status to analgesic agent
CPT/HCPCS: 87070; 87880; 99283

== ENCOUNTER 2019-03-04 18:39 | Emergency (ER) | payer MEDICAID, OTHER ==
[~2019-03-04] VITALS: Ht 172.7 cm; Wt 67.1 kg
[~2019-03-04 18:39] MED LIST changes: +HYDR-3164 PO; -HYDR-971 PO; +PRED50TA PO
[2019-03-04 18:58] VITALS: BP 148/69
[2019-03-04] MEDS ORDERED: traMADol 50 MG TABLET PO ONE (19:30)
[2019-03-04] MEDS ORDERED: LIDOCAINE 1% Multi-Dose 20 ML VIAL. INJ ONE (19:30)
[2019-03-04] MEDS ORDERED: CEPH-264 PO (19:51)
[2019-03-04] MEDS ORDERED: BACI1PAC4 TP (19:51)
--- NOTE | 2019-03-04 19:52 | PHYS DOC ---
Past Medical History Past Medical History: Kidney Stone, Migraines, Seizure, Other Additional Past Medical Histor: HERNIA,EPILEPSY (DYAN PÉREZ APRN) Past Surgical History: Other Additional Past Surgical Histo: Hernia repair; kidney stone 12/19/16 (DYAN PÉREZ APRN) Alcohol Use: None Drug Use: None (DYAN PÉREZ APRN) Attending Signature I have participated in the care of this patient and I have reviewed and agree with all pertinent clinical information above including history, exam, and recommendations. (JOSE MONROY MD) Adult General Chief Complaint Chief Complaint: FINGER INJURY HPI HPI Patient is a 43 year old male who presents with states he fell yesterday up a curb and then woke up this morning with his left middle finger tip swollen around the nail bed. Patient states it is tender and reddened. Patient rates his pain 8 out of 10 at this time. (DYAN PÉREZ APRN) Review of Systems Review of Systems Integument: Left middle finger, tenderness and redness. Denies rash or skin lesions [] All other systems were reviewed and found to be within normal limits, except as documented in this note. (DYAN PÉREZ APRN) Current Medications Current Medications Current Medications Medications (Trade) Dose Ordered Sig/[facility] Start Time Stop Time Status Last Admin Dose Admin Lidocaine HCl (Lidocaine 1% 20ml Vial) 20 ml 1X ONCE 03/04/19 19:30 03/04/19 19:31 DC 03/04/19 19:27 20 ML Tramadol HCl (Ultram) 50 mg 1X ONCE 03/04/19 19:30 03/04/19 19:31 DC 03/04/19 19:27 50 MG (JOSE MONROY MD) Allergies Allergies Allergies Coded Allergies Type Severity Reaction Last Updated Verified acetaminophen Allergy Intermediate 08/08/14 Yes (JOSE MONROY MD) Physical Exam Physical Exam Constitutional: Well developed, well nourished, no acute distress, non-toxic appearance. [] Skin: Warm, dry, Left middle finger erythema around nail, no rash. [] Extremities: No tenderness, no cyanosis, no clubbing, ROM intact, no edema. [] Neurologic: Alert and oriented X 3, normal motor function, normal sensory function, no focal deficits noted. [] Psychologic: Affect normal, judgement normal, mood normal. [] (DYAN PÉREZ APRN) Current Patient Data Vital Signs Vital Signs Date Time Temp Pulse Resp B/P (MAP) Pulse Ox O2 Delivery O2 Flow Rate FiO2 03/04/19 19:27 15 96 Room Air 03/04/19 18:58 98.5 86 148/69 (95) 98.5 (JOSE MONROY MD) EKG EKG [] (DYAN PÉREZ APRN) Radiology/Procedures Radiology/Procedures [] (DYAN PÉREZ APRN) Course & Med Decision Making Course & Med Decision Making Patient states he has been soaking it in warm water and using a heating pad but is has not started to drain anything. Cap refill is less than 3 seconds. There is only swelling and redness around the nail on the left middle finger. Afebrile. Patient is able to bend the finger at all joints. No spread streaking. Radial pulse strong and present. No injury tot he nail or nail bed. Abscess Incision and Drainage with irrigation by me: Location: Left middle finger Anesthesia: Local 1% Lidocaine Technique: Irrigated. Disrupted loculations w/ instrumentation Packing: None Complications: Neurovascularly intact post procedure 48 hour wound check. Scar minimization instructions given. ED Ultrasound: Abscess localized by me using concurrent ultrasound guidance and assessment of the anatomy. Real time image archived in the medical record confirms anatomy. (DYAN PÉREZ APRN) Dragon Disclaimer Dragon Disclaimer This electronic medical record was generated, in whole or in part, using a voice recognition dictation system. (DYAN PÉREZ APRN) Departure Departure Impression: Primary Impression: Paronychia Disposition: 01 HOME, SELF-CARE Condition: STABLE Referrals: ISRRAEL DIEGO MD (PCP) Patient Instructions: Paronychia, [id number] Additional Instructions: Take medication as prescribed. Follow up with her primary care provider. Keep it covered and clean. Scripts Bacitracin (BACITRACIN) 1 Each Packet 1 PACKET TP ONCE for 30 Days, #30 PACKET 0 Refills Prov: DYAN PÉREZ APRN 03/04/19 Cephalexin (KEFLEX) 500 Mg Capsule 500 MG PO QID for 10 Days, #40 CAP Prov: DYAN PÉREZ APRN 03/04/19 DYAN PÉREZ APRN Mar 04, 2019 19:52 JOSE MONROY MD Mar 05, 2019 05:29
== END 2019-03-04 20:20 | disposition home or self-care (01) ==
LOC: ER 18:39
DX: L03.012 Cellulitis of left finger (principal); Z87.442 Personal history of urinary calculi; G43.909 Migraine, unspecified, not intractable, without status migrainosus; Z88.6 Allergy status to analgesic agent
CPT/HCPCS: 10060; 99283

== ENCOUNTER → 2021-07-11 | Outpatient (CLI) | payer MEDICARE ==
[~2021-07-11] MED LIST changes: +BACI1PAC4 TP; +CEPH-264 PO; -CLIN150C14 PO; +CLIN150C16 PO; -DOXY100C2 PO; +DOXY100C3 PO
--- NOTE | 2021-07-11 15:58 | RAD ---
EXAM: Right wrist, 3 views. HISTORY: Pain. COMPARISON: None. FINDINGS: 3 views of the right wrist are obtained. There is a degenerative subchondral cyst within th e aspect of the lunate. There is no fracture, dislocation or subluxation. IMPRESSION: Small degenerative subchondral cyst within the lunate. No acute osseous finding. Electronically signed by: Radha Camargo MD (07/11/2021 3:55 PM) [id number]
== END ==
LOC: RAD 15:10
PROVIDERS: ATTEND Physician Assistant Medical
DX: M85.431 Solitary bone cyst, right ulna and radius (principal)
CPT/HCPCS: 73110

== ENCOUNTER → 2021-07-26 | Outpatient (CLI) | payer MEDICARE ==
[~2021-07-26] MED LIST changes: +OXYC1TAB15 PO; +TRAM50TA PO
--- NOTE | 2021-07-27 06:21 | KCIC ---
EXAMINATION: XR HAND_RIGHT 3 VIEWS, XR RT WRIST 3VIEWS CLINICAL HISTORY: General hand/wrist pain for 3 weeks. TECHNIQUE: XR HAND_RIGHT 3 VIEWS, XR RT WRIST 3VIEWS COMPARISON: None FINDINGS/ IMPRESSION: Radiocarpal joint space narrowing. Joint spaces and alignment maintained. No acute fracture. Mild sof t tissue swelling along the dorsal wrist. Electronically signed by: Chet Anders DO (07/27/2021 6:18 AM) [facility]
== END ==
LOC: KCIC 15:55
PROVIDERS: ATTEND Physician Assistant Medical
DX: M79.89 Other specified soft tissue disorders (principal); M25.841 Other specified joint disorders, right hand; M25.531 Pain in right wrist
CPT/HCPCS: 73110; 73130

== ENCOUNTER 2021-07-27 08:35 | Emergency (ER) | payer MEDICARE ==
[~2021-07-27] VITALS: Ht 175.3 cm; Wt 78.9 kg
[~2021-07-27 08:35] MED LIST changes: -OXYC1TAB15 PO; -TRAM50TA PO
[2021-07-27] MEDS ORDERED: KETOROLAC 30 MG/ML VIAL. IVP ONE (09:15)
[2021-07-27] MEDS ORDERED: IV NORMAL SALINE 1000ML BAG 1,000 ML IV SCH (09:15)
--- NOTE | 2021-07-27 09:16 | PHYS DOC ---
Past Medical History Past Medical History: Kidney Stone, Migraines, Seizure, Other Additional Past Medical Histor: HERNIA,EPILEPSY, LEFT SIDED BRAIN TUMOR Past Surgical History: Other Additional Past Surgical Histo: Hernia repair; kidney stone 12/19/16 Smoking Status: Former Smoker Alcohol Use: None Drug Use: None General Adult EDM: Chief Complaint: FLANK PAIN HPI: HPI: Patient is a 45 year old male presents to the ER with left flank/left lower quadrant abdominal pain. Patient reports the pain is sharp and started last night. Patient states that he has had similar pain in the past many years ago on the right which he was diagnosed with a kidney stone. Patient denies any fevers or chills. Reports nausea no vomiting. Patient reports that the pain radiates into his left testicle. Denies any dysuria or urinary retention. Review of Systems: Review of Systems: Constitutional: Denies fever or chills. Eyes: Denies change in visual acuity. HENT: Denies nasal congestion or sore throat. Respiratory: Denies cough or shortness of breath. Cardiovascular: Denies chest pain or edema. GI: Reports left lower quadrant abdominal pain and nausea denies, vomiting, bloody stools or diarrhea. : Denies dysuria. Denies decreased urinary output. No hematuria Musculoskeletal: Denies back pain or joint pain. Integument: Denies rash. Neurologic: Denies headache, focal weakness or sensory changes. Endocrine: Denies polyuria or polydipsia. Lymphatic: Denies swollen glands. Psychiatric: Denies depression or anxiety. Heart Score: C/O Chest Pain: No Risk Factors: Risk Factors: DM, Current or recent (<one month) smoker, HTN, HLP, family history of CAD, obesity. Risk Scores: Score 0 - 3: 2.5% MACE over next 6 weeks - Discharge Home Score 4 - 6: 20.3% MACE over next 6 weeks - Admit for Clinical Observation Score 7 - 10: 72.7% MACE over next 6 weeks - Early Invasive Strategies Current Medications: Current Medications Medications (Trade) Dose Ordered Sig/Margarito Start Time Stop Time Status Last Admin Dose Admin Ketorolac Tromethamine (Toradol 30mg Vial) 15 mg 1X ONCE 07/27/21 09:15 07/27/21 09:16 UNV Sodium Chloride 1,000 ml @ 1,000 mls/hr Q1H 07/27/21 09:15 07/27/21 10:14 UNV Allergies: Allergies: Allergies Coded Allergies Type Severity Reaction Last Updated Verified acetaminophen Allergy Intermediate 08/08/14 Yes aspirin Allergy Intermediate UNKNOWN 07/27/21 Yes codeine Allergy Intermediate UNKNOWN 07/27/21 Yes Physical Exam: PE: Constitutional: Well developed, well nourished, no acute distress, non-toxic appearance. Patient appears to be in pain HENT: Normocephalic, atraumatic, bilateral external ears normal, oropharynx moist, no oral exudates, nose normal. Eyes: PERRLA, EOMI, conjunctiva normal, no discharge. Neck: Normal range of motion, no tenderness, supple, no stridor. Cardiovascular:Heart rate regular rhythm, no murmur Lungs & Thorax: Bilateral breath sounds clear to auscultation Abdomen: Abdomen is soft. Tender in the left lower quadrant with no rebound tenderness. Normal bowel sounds SkinDiaphoretic warm, dry, no erythema, no rash. Back: No tenderness, no CVA tenderness. Extremities: No tenderness, no cyanosis, no clubbing, ROM intact, no edema. Neurologic: Alert and oriented X 3, normal motor function, normal sensory function, no focal deficits noted. Psychologic: Affect normal, judgement normal, mood normal. Current Patient Data: Labs: Laboratory Tests Test 07/27/21 10:55 White Blood Count 10.2 x10^3/uL Red Blood Count 4.64 x10^6/uL Hemoglobin 13.6 g/dL Hematocrit 40.3 % Mean Corpuscular Volume 87 fL Mean Corpuscular Hemoglobin 29 pg Mean Corpuscular Hemoglobin Concent 34 g/dL Red Cell Distribution Width 14.0 % Platelet Count 278 x10^3/uL Neutrophils (%) (Auto) 84 % Lymphocytes (%) (Auto) 9 % Monocytes (%) (Auto) 6 % Eosinophils (%) (Auto) 0 % Basophils (%) (Auto) 1 % Neutrophils # (Auto) 8.5 x10^3/uL Lymphocytes # (Auto) 0.9 x10^3/uL Monocytes # (Auto) 0.6 x10^3/uL Eosinophils # (Auto) 0.0 x10^3/uL Basophils # (Auto) 0.1 x10^3/uL Current Medications Medications (Trade) Dose Ordered Sig/Margarito Route PRN Reason Start Time Stop Time Status Last Admin Dose Admin Sodium Chloride 1,000 ml @ 1,000 mls/hr Q1H IV 07/27/21 09:15 07/27/21 10:14 DC 07/27/21 09:25 Ketorolac Tromethamine (Toradol 30mg Vial) 15 mg 1X ONCE IVP 07/27/21 09:15 07/27/21 09:16 DC 07/27/21 09:26 Vital Signs: Vital Signs Date Time Temp Pulse Resp B/P (MAP) Pulse Ox O2 Delivery O2 Flow Rate FiO2 07/27/21 08:35 99.4 103 24 163/93 (116) 100 Room Air 99.4 EKG: EKG: Patient has a heart rate of 91 normal sinus rhythm. QTC is 474. Radiology/Procedures: Radiology/Procedures: [] Impression: PATIENT: KRISTOFER DAWSON ACCOUNT: [id number] : 1975 LOCATION: ER AGE: 45 SEX: M EXAM STATUS: PRE ER ORD. PHYSICIAN: URIEL AREVALO DO REASON: LLQ/L FLank pain PROCEDURE: CT ABDOMEN PELVIS WO CONTRAST Study: CT abdomen/pelvis without intravenous contrast Indication: Left lower quadrant/left flank pain. Comparison: CT abdomen/pelvis 10/29/2016 Technique: Helical CT imaging performed of the abdomen and pelvis without the use of intravenous contrast. Sagittal and coronal reformats were obtained. One or more of the following individualized dose reduction techniques were utilized for this examination: 1. Automated exposure control 2. Adjustment of the mA and/or kV according to patient size 3. Use of iterative reconstruction technique. Findings: Inherently limited evaluation without intravenous contrast. Small hiatal hernia. Right lower lobe granulomas. Unremarkable liver, gallbladder, biliary tree, pancreas, spleen and adrenal glands. Mild hydroureter on the left and minimal intrarenal collecting system dilatation in the setting of a 4 mm stone at the ureterovesicular junction. Three additional nonobstructing intrarenal stones on the left larger measuring up to 5 mm. No stone or collecting system dilatation on the right. Normal bladder wall thickness. No significant enlargement of the prostate. Mild volume colonic stool burden. Normal appendix. No pathologic dilatation of small bowel. Unremarkable stomach. Nonaneurysmal abdominal aorta. No lymphadenopathy by size criteria. No free fluid or pneumoperitoneum. Chronic bilateral L5 pars defects. Posterior disc bulge at L4-L5. No acute or aggressive osseous abnormality. Impression: 1. Mild collecting system dilatation on the left in the setting of a 4 mm stone at the ureterovesicular junction. Three additional nonobstructing intrarenal stones on the left. 2. Small hiatal hernia. Electronically signed by: YULIYA HORNER MD (07/27/2021 10:31 AM) [id number] Course & Med Decision Making: Course & Med Decision Making Pertinent Labs and Imaging studies reviewed. (See chart for details) Is reassessed and currently no pain. Patient states that he does have an allergy to codeine which is very mild and states that he has never taken Percocets but would prefer to try. Patient given strict return precautions. Patient is elevated white count likely secondary to pain and stress. Patient otherwise hemodynamically stable no signs of sepsis Dragon Disclaimer: Dragon Disclaimer: This electronic medical record was generated, in whole or in part, using a voice recognition dictation system. Departure Departure Referrals: ISRRAEL DIEGO MD (PCP) URIEL AREVALO DO Jul 27, 2021 09:16
--- NOTE | 2021-07-27 10:34 | RAD ---
Study: CT abdomen/pelvis without intravenous contrast Indication: Left lower quadrant/left flank pain. Comparison: CT abdomen/pelvis 10/29/2016 Technique: Helical CT imaging performed of the abdomen and pelvis without the use of intravenous cont rast. Sagittal and coronal reformats were obtained. One or more of the following individualized dose reduction techniques were utilized for this examinat ion: 1. Automated exposure control 2. Adjustment of the mA and/or kV according to patient size 3. Use of iterative reconstruction technique. Findings: Inherently limited evaluation without intravenous contrast. Small hiatal hernia. Right lower lobe granulomas. Unremarkable liver, gallbladder, biliary tree, pancreas, spleen and adrenal glands. Mild hydroureter on the left and minimal intrarenal collecting system dilatation in the setting of a 4 mm stone at the ureterovesicular junction. Three additional nonobstructing intrarenal stones on the left larger measuring up to 5 mm. No stone or collecting system dilatation on the right. Normal blad jun wall thickness. No significant enlargement of the prostate. Mild volume colonic stool burden. Nor mal appendix. No pathologic dilatation of small bowel. Unremarkable stomach. Nonaneurysmal abdominal aorta. No lymphadenopathy by size criteria. No free fluid or pneumoperitoneum . Chronic bilateral L5 pars defects. Posterior disc bulge at L4-L5. No acute or aggressive osseous abno rmality. Impression: 1. Mild collecting system dilatation on the left in the setting of a 4 mm stone at the ureterovesicu lar junction. Three additional nonobstructing intrarenal stones on the left. 2. Small hiatal hernia. Electronically signed by: YULIYA HORNER MD (07/27/2021 10:31 AM) [id number]
[2021-07-27 10:58] LABS: BASO # 0.1 x10^3/uL (0.0-0.2); BASO % 1 % (0-3); EOS % 0 % (0-3); HEMATOCRIT 40.3 % (39.0-53.0); HEMOGLOBIN 13.6 g/dL (13.0-17.5); LYMPH # 0.9 x10^3/uL (1.0-4.8); LYMPH % 9 % (24-48); MEAN CORPUSCULAR HEMOGLOBIN 29 pg (25-35); MEAN CORPUSCULAR HGB CONC 34 g/dL (31-37); MEAN CORPUSCULAR VOLUME 87 fL (79-100); MONO # 0.6 x10^3/uL (0.0-1.1); MONO % 6 % (0-9); NEUT # 8.5 x10^3/uL (1.8-7.7); NEUT % 84 % (31-73); PLATELET COUNT 278 x10^3/uL (140-400); RED BLOOD COUNT 4.64 x10^6/uL (4.30-5.70); WHITE BLOOD COUNT 10.2 x10^3/uL (4.0-11.0)
[2021-07-27 11:01] VITALS: BP 158/76
[2021-07-27 11:15] LABS: CALCIUM 8.9 mg/dL (8.5-10.1); CREATININE 1.7 mg/dL (0.7-1.3); GFR 43.8; POTASSIUM 3.6 mmol/L (3.5-5.1)
[2021-07-27] MEDS ORDERED: TRAM50TA PO (11:19)
[2021-07-27 11:21] LABS: ALBUMIN 4.3 g/dL (3.4-5.0); ALBUMIN/GLOBULIN RATIO 1.3 (1.0-1.7); TOTAL BILIRUBIN 1.1 mg/dL (0.2-1.0); TOTAL PROTEIN 7.6 g/dL (6.4-8.2)
--- NOTE | 2021-07-27 19:04 | EKG ---
[facility] [address] [place] [address] Test Date: 2021-07-27 Test Time: 09:31:28 Pat Name: KRISTOFER DAWSON Department: Room: Gender: M Housekeeper/Custodian/Laundry Worker: : 1975 Requested By: URIEL AREVALO Order Number: [id number] Reading MD: Adams Juarez Measurements Intervals [place] Rate: 91 P: 90 IN: 170 QRS: 67 QRSD: 90 T: 37 QT: 384 QTc: 474 Interpretive Statements SINUS RHYTHM PROLONGED QT Electronically Signed On 07-27-2021 21:16:19 CDT by Adams Juarez
== END 2021-07-27 11:30 | disposition home or self-care (01) ==
LOC: ER 08:35
DX: R10.32 Left lower quadrant pain (principal); N50.812 Left testicular pain; K44.9 Diaphragmatic hernia without obstruction or gangrene; G43.909 Migraine, unspecified, not intractable, without status migrainosus; Z87.891 Personal history of nicotine dependence; G40.909 Epilepsy, unspecified, not intractable, without status epilepticus; Z88.6 Allergy status to analgesic agent; Z88.5 Allergy status to narcotic agent
CPT/HCPCS: 36415; 74176; 80053; 83690; 85025; 93005; 96361; 96374; 99285; J1885; J7030

== ENCOUNTER 2021-07-30 02:37 | Emergency (ER) | payer MEDICARE ==
[~2021-07-30] VITALS: Ht 177.8 cm; Wt 82.0 kg
[~2021-07-30 02:37] MED LIST changes: +TRAM50TA PO
[2021-07-30] MEDS ORDERED: oxyCODONE/APAP 10/325 1 TAB TABLET PO ONE (03:30)
[2021-07-30] MEDS ORDERED: IBUPROFEN 400 MG TABLET. PO ONE (03:30)
[2021-07-30 04:06] LABS: CREATININE 1.6 mg/dL (0.7-1.3)
[2021-07-30] MEDS ORDERED: OXYC1TAB15 PO (04:51)
--- NOTE | 2021-07-30 04:51 | PHYS DOC ---
Past Medical History Past Medical History: Kidney Stone, Migraines, Seizure, Other Additional Past Medical Histor: HERNIA,EPILEPSY, LEFT SIDED BRAIN TUMOR Past Surgical History: Cancer Surgery, Other Additional Past Surgical Histo: SHOULDER REPAIR Smoking Status: Former Smoker Alcohol Use: None Drug Use: None Adult General Chief Complaint Chief Complaint: FLANK PAIN HPI HPI 45-year-old gentleman who was diagnosed with 4 mm left UVJ ureteral stone a co uple of days ago here at [facility]. He presents for left-sided renal colic which is not completely controlled with the tramadol he was prescribed for home use. Here requesting pain control. No fevers, nausea or vomiting, abdominal pain, groin pain, dysuria, hematuria, polyuria or oliguria, changes in bowel habits. Review of records from the patient's last visit reveals evidence of some mild, likely chronic, renal insufficiency with a creatinine of 1.7 and a normal BUN. Patient is alert, oriented x4, pleasantly and appropriately interactive and in no acute distress with appropriate vital signs upon initial evaluation here in the emergency department. Review of Systems Review of Systems A 12 point review of systems was completed and was negative except where noted in HPI above. Current Medications Current Medications Current Medications Medications (Trade) Dose Ordered Sig/Margarito Start Time Stop Time Status Last Admin Dose Admin Ibuprofen (Motrin) 800 mg 1X ONCE 07/30/21 03:30 07/30/21 03:31 DC 07/30/21 03:45 800 MG Oxycodone/ Acetaminophen (Percocet 10/325) 1 tab 1X ONCE 07/30/21 03:30 07/30/21 03:31 DC 07/30/21 03:45 1 TAB Allergies Allergies Allergies Coded Allergies Type Severity Reaction Last Updated Verified acetaminophen Allergy Intermediate 07/30/21 Yes aspirin Allergy Intermediate UNKNOWN 07/30/21 Yes codeine Allergy Intermediate UNKNOWN 07/30/21 Yes Physical Exam Physical Exam 45-year-old male appearing nontoxic and in no acute distress. Head is normocephalic and atraumatic. Neck is supple and nontender. Oropharynx is moist. Lungs are clear to auscultation at all stations. There is a normal S1 and S2 without rubs or gallops and capillary refill is appropriate, less than 2 seconds globally. Abdomen soft, nontender nondistended. Skin is warm and dry without cyanosis, clubbing or edema. Psychiatrically, the patient demonstrates appropriate mood and affect and is alert. Evaluation of the extremities reveals BUEs and BLEs neurovascularly intact distally with strength 5 out of 5, sensation intact light touch in all nerve distributions, radial, DP and PT pulses 2+ and equal bilaterally, capillary refill less than 2 seconds, hands and feet warm well-perfused. No dependent peripheral edema distally. No calf tenderness swelling bilaterally. Homans test is negative bilaterally. Current Patient Data Vital Signs Vital Signs Date Time Temp Pulse Resp B/P (MAP) Pulse Ox O2 Delivery O2 Flow Rate FiO2 07/30/21 04:58 87 162/84 (110) 96 07/30/21 03:00 97.8 18 Room Air 97.8 Lab Values Laboratory Tests Test 07/30/21 03:52 Sodium Level 135 mmol/L (136-145) L Potassium Level 4.0 mmol/L (3.5-5.1) Chloride Level 101 mmol/L (98-107) Carbon Dioxide Level 26 mmol/L (21-32) Anion Gap 8 (6-14) Blood Urea Nitrogen 21 mg/dL (8-26) Creatinine 1.6 mg/dL (0.7-1.3) H Estimated GFR (Cockcroft-Gault) 47.0 Glucose Level 101 mg/dL (70-99) H Calcium Level 9.0 mg/dL (8.5-10.1) Laboratory Tests 07/30/21 03:52 EKG EKG [] Radiology/Procedures Radiology/Procedures [] Course & Med Decision Making Course & Med Decision Making 45-year-old gentleman here with renal colic from a known left UVJ stone. Symptoms completely controlled with ibuprofen and Percocet here in the emergency department (patient does not have any problem with Percocet or [place] per discussion with him despite his documented Tylenol allergy). Given resolution of discomfort in this well-appearing gentleman whose renal function is improved versus at his presentation a couple of days ago, will discharge home to follow- up closely with urology. Will prescribe a few Percocet for pain; will avoid NSAIDs given renal insufficiency. Patient understands that if he feels worse instead of better or develops other new symptoms of concern that he will need to return to emergency department immediately for reevaluation. Questions are answered. Dragon Disclaimer Dragon Disclaimer This electronic medical record was generated, in whole or in part, using a voice recognition dictation system. Departure Departure Impression: Primary Impression: Renal colic on left side Disposition: HOME / SELF CARE / HOMELESS Condition: IMPROVED Referrals: NELLY GREEN MD Patient Instructions: Kidney Stones Additional Instructions: Follow-up with Dr. Green of [facility] urology or with a urologist of your choice within the next 1 week for a reevaluation of your symptoms and a discussion of next best steps in care. Drink lots of fluids to stay hydrated and to help pass the stone and get plenty of rest. You may take a Percocet pill every 6 hours as ne eded for discomfort. Be careful because Percocet can make you sleepy so do not drive or work or operate machinery while taking it. Return to the emergency department right away for worsening symptoms of any kind or with any other new symptoms of concern. Scripts Oxycodone/Apap 5-325 (PERCOCET 5-325 MG TABLET ) 1 Each Tablet 1 TAB PO PRN Q6HRS PRN for PAIN, #12 TAB 0 Refills Prov: CHUCK MAYFIELD MD 07/30/21 CHUCK MAYFIELD MD Jul 30, 2021 04:51
[2021-07-30 04:58] VITALS: BP 162/84
== END 2021-07-30 05:18 | disposition home or self-care (01) ==
LOC: ER 02:37
DX: N23 Unspecified renal colic (principal); G43.909 Migraine, unspecified, not intractable, without status migrainosus; Z87.891 Personal history of nicotine dependence; Z98.890 Other specified postprocedural states
CPT/HCPCS: 36415; 80048; 99283